=== PATIENT | female | born 1950 | race Caucasian/White ===

== ENCOUNTER → 2018-07-06 | Outpatient (CLI) | payer MEDICARE ==
[2016-07-31 15:43] VITALS: BMI 31.9
[~2018-07-06] MED LIST: ACET-2007 PO; DIA5; DIAZ-308 PO; DIVA500T98 PO; DULO30CA35 PO; HYDR-393 PO; LOR5/325 PO; MORP-20 PO; MULT-1335 PO; OXYC5TAB65; POTA20PA31 PO; ZOLP-358 PO; [UNRECOGNIZED DRUG - CODE] PO
--- NOTE | 2018-07-07 13:30 | RADIOLOGY IMAGING REPORT ---
FACILITY: [facility] [place] PATIENT NAME: MARILU JURADO : [id number] MR: [id number] V: [id number] EXAM DATE: [id number] ORDERING PHYSICIAN: JOEY CROWELL TECHNOLOGIST: Chika Sharma PROCEDURE:BILATERAL DIGITAL SCREENING MAMMOGRAM WITH CAD ASSISTED INTERPRETATION & 3D TOMOSYNTHESIS COMPARISON:Prior mammogram 04/15/17. INDICATIONS:SCREENING FINDINGS: A small amount of scattered fibroglandular tissue is seen throughout the breasts. The parenchymal pattern has remained stable allowing for difference in mammographic technique & patient positioning. DIAGNOSTIC CATEGORY 1--NEGATIVE. RECOMMENDATIONS: ROUTINE MAMMOGRAM AND CLINICAL EVALUATION. IMPRESSION: BIRADS 1: Negative. No significant abnormality is seen. Dictated by: Nesha Holder M.D. on 07/06/2018 at 17:04 Transcribed by: JUSTIN on 07/07/2018 at 9:01 Approved by: Nesha Holder M.D. on 07/07/2018 at 13:28 [facility]
== END ==
LOC: MAMO 02:30
PROVIDERS: ATTEND Family Medicine
DX: Z12.31 Encounter for screening mammogram for malignant neoplasm of breast (principal)
CPT/HCPCS: 77063; 77067